=== PATIENT | female | born 1950 | race Hispanic/Latino ===

== ENCOUNTER → 2021-04-16 | Day surgery (SDC) | payer MEDICARE ==
[2021-04-14 13:29] LABS: BASOPHILS # (AUTO) 0.1 (0.0-0.1); BASOPHILS % 1.1 % (0.0-1.0); EOSINOPHILS # (AUTO) 0.4 (0.0-0.4); HEMATOCRIT 37.4 % (34.2-44.1); LYMPHOCYTES % 27.4 % (18.0-39.1); MEAN CORPUSCULAR HEMOGLOBIN 29.9 pg (28-32); MEAN CORPUSCULAR HGB CONC 32.1 g/dL (31-35); MONOCYTES # (AUTO) 0.4 (0.2-0.8); MONOCYTES % 6.1 % (4.4-11.3); NEUTROPHILS # (AUTO) 4.3 (2.1-6.9); NEUTROPHILS % 60.1 % (38.7-80.0); PLATELET COUNT 203 x10e3/uL (140-360); RED BLOOD COUNT 4.02 x10e6/uL (3.6-5.1); RED CELL DISTRIBUTION WIDTH 14.8 % (11.7-14.4)
[~2021-04-16] MED LIST: AMLODIPINE BESY10 MG PO; COQ-10100 MG PO; CRESTOR10 MG PO; DICLOFENAC SOD100 G1 TOP; IRBESARTAN150 MG PO; LEVOTHYROXINE50 MCG PO; OMEPRAZOLE40 MG PO; RIZATRIPTAN10 MG PO; TRINTELLIX10 MG PO; TYLENOL ARTHRITIS PO; VITAMIN C500 MG PO; XIGDUO XR 5 MG1 EACH PO; ZOFRAN4 MG PO
[2021-04-16 13:55] VITALS: BP 158/90
== END | disposition home or self-care (01) ==
LOC: OR 10:34
PROVIDERS: ATTEND Internal Medicine Gastroenterology
DX: K21.9 Gastro-esophageal reflux disease without esophagitis (principal); K29.70 Gastritis, unspecified, without bleeding; K31.9 Disease of stomach and duodenum, unspecified; R63.4 Abnormal weight loss; G47.33 Obstructive sleep apnea (adult) (pediatric); I10 Essential (primary) hypertension; E11.9 Type 2 diabetes mellitus without complications; E03.9 Hypothyroidism, unspecified; G43.909 Migraine, unspecified, not intractable, without status migrainosus; F32.9 Major depressive disorder, single episode, unspecified; Z01.810 Encounter for preprocedural cardiovascular examination; Z01.812 Encounter for preprocedural laboratory examination; Z20.822 Contact with and (suspected) exposure to COVID-19; Z68.43 Body mass index [BMI] 50.0-59.9, adult; Z87.440 Personal history of urinary (tract) infections
CPT/HCPCS: 36415 ×2; 43239; 82948; 85025; 93005; C9113; U0002